=== PATIENT | female | born 1970 | race Caucasian/White ===

== ENCOUNTER → 2016-12-23 | Outpatient (CLI) | payer BC ==
[~2016-12-23] MED LIST: CALC500C3 PO; MOTRIN PO; PRENTAB26 PO; TYLENOL PO
== END | disposition home or self-care (01) ==
LOC: C.PAPS 17:43
PROVIDERS: ATTEND Obstetrics & Gynecology
DX: Z01.419 Encounter for gynecological examination (general) (routine) without abnormal findings (principal)